=== PATIENT | female | born 1990 | race Two or more races ===

== ENCOUNTER 2021-01-09 10:36 | Emergency (ER) | payer OTHER ==
[~2021-01-09] VITALS: Ht 142.2 cm; Wt 53.0 kg
[2021-01-09 13:26] VITALS: BP 114/71
== END 2021-01-09 13:27 ==
LOC: EMS 10:36
DX: Z11.1 Encounter for screening for respiratory tuberculosis (principal)
CPT/HCPCS: 71045; 99283